=== PATIENT | female | born 2000 | race Two or more races ===

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

== ENCOUNTER 2020-07-06 20:58 | Emergency (ER) | payer MEDICAID ==
[~2020-07-06] VITALS: Ht 154.9 cm; Wt 62.6 kg
[2020-07-06 22:36] VITALS: BP 119/68
== END 2020-07-06 23:33 | disposition home or self-care (01) ==
LOC: ER 21:00
DX: S67.191A Crushing injury of left index finger, initial encounter (principal); X58.XXXA Exposure to other specified factors, initial encounter; Y93.89 Activity, other specified; Y92.89 Other specified places as the place of occurrence of the external cause; Y99.8 Other external cause status
CPT/HCPCS: 73140